=== PATIENT | female | born 1985 | race Asian ===

== ENCOUNTER 2021-12-06 06:09 | Day surgery (SDC) | payer MEDICAID, SELFPAY ==
[2021-12-05 09:35] LABS: HCG,QUAL RESULT NEGATIVE (NEGATIVE)
[~2021-12-06] VITALS: Ht 167.6 cm; Wt 65.8 kg
[2021-12-06] MEDS ORDERED: SIMETHICONE 40 MG/0.6 ML ML ONE (06:16)
[2021-12-06] MEDS ORDERED: INDOMETHACIN 50 MG SUPP.RECT RC ONE (07:00)
[2021-12-06] MEDS ORDERED: LIDOCAINE 1% 10 MG/ML, 20 ML MDV ONE (08:15)
[2021-12-06] MEDS ORDERED: PROPOFOL 200MG/ 20ML VIAL (DIPRIVAN) IV ONE (08:15)
[2021-12-06] MEDS ORDERED: SUGAMMADEX SODIUM 200 MG/2 ML VIAL IV ONE (08:15)
[2021-12-06] MEDS ORDERED: MIDAZOLAM HCL 5 MG/5 ML VIAL ONE (08:15)
[2021-12-06] MEDS ORDERED: ONDANSETRON HCL 4 MG/2 ML VIAL ONE (08:15)
[2021-12-06] MEDS ORDERED: fentaNYL CITRATE/PF 100 MCG/2 ML AMP ONE (08:15)
[2021-12-06] MEDS ORDERED: NACL 0.9% 1,000 ML IV SCH (08:15)
[2021-12-06] MEDS ORDERED: MEPERIDINE HCL/PF 25 MG/ML DISP.SYRIN IVP PRN (08:15)
[2021-12-06] MEDS ORDERED: MIDAZOLAM HCL 2 MG/2 ML VIAL (VERSED) IVP PRN (08:15)
[2021-12-06] MEDS ORDERED: DEXAMETHASONE SOD PHOSPHATE 4 MG/ML VIAL ONE (08:15)
[2021-12-06] MEDS ORDERED: METOCLOPRAMIDE HCL 10 MG/2 ML VIAL IVP PRN (08:15)
[2021-12-06] MEDS ORDERED: ROCURONIUM BROMIDE 10 MG/ML (ZEMURON) ONE (08:15)
[2021-12-06] MEDS ORDERED: HYDROmorphone 1 MG/ML INJ. CARTRIDGE IVP PRN ×2 (08:15)
[2021-12-06 10:49] VITALS: BP_SYST 126
== END 2021-12-06 10:30 | disposition home or self-care (01) ==
LOC: SMU 06:09 → SDS 06:09 → EDSEX 07:30 → SDS 10:30
PROVIDERS: ATTEND Internal Medicine Gastroenterology
DX: K80.50 Calculus of bile duct without cholangitis or cholecystitis without obstruction (principal); Z88.1 Allergy status to other antibiotic agents; Z79.899 Other long term (current) drug therapy
CPT/HCPCS: 36415; 43261; 43264; 76000; 84703; 87426; 88305; 88312; 88313; C1769; J1100; J2001; J2250; J2405; J2704; J3010; J3490; Q9967; 43239